=== PATIENT | male | born 1995 | race African-American/Black ===

== ENCOUNTER 2016-06-18 20:17 | Emergency (ER) | payer MEDICAID ==
[~2016-06-18] VITALS: Ht 180.3 cm; Wt 97.5 kg
[~2016-06-18 20:17] MED LIST: BECL80AE9; DIVA500T4 PO; [UNRECOGNIZED DRUG - OTHER]
[2016-06-19] MEDS ORDERED: CLINDAMYCIN 900MG IV 50 ML IV ONE
[2016-06-19] MEDS ORDERED: cefTRIAXone 1GM/50ML D5W 50 ML IV ONE
[2016-06-19 00:02] VITALS: BP 124/77
[2016-06-19] MEDS ORDERED: HYDROcodone-ACET 10/325MG TAB PO ONE (00:45)
== END 2016-06-19 02:15 | disposition home or self-care (01) ==
LOC: ER 20:21
DX: L02.01 Cutaneous abscess of face (principal)
CPT/HCPCS: 96365; 96366; 96368; 99284; J0696; J3490

== ENCOUNTER 2016-11-02 09:41 | Emergency (ER) | payer MEDICAID ==
[~2016-11-02] VITALS: Ht 177.8 cm; Wt 90.7 kg
[2016-11-02 09:46] VITALS: BP 142/79
== END 2016-11-02 11:44 | disposition home or self-care (01) ==
LOC: ER 09:41
DX: J02.9 Acute pharyngitis, unspecified (principal)

== ENCOUNTER 2019-05-22 09:00 | Emergency (ER) | payer SELFPAY ==
[~2019-05-22] VITALS: Ht 177.8 cm; Wt 90.7 kg
[2019-05-22 09:13] VITALS: BP 126/81
[2019-05-22] MEDS ORDERED: KETOROLAC TROMETH 60MG/2ML VIAL IM ONE (11:00)
[2019-05-22] MEDS ORDERED: cefTRIAXone SOD 1,000 MG VL IM ONE (11:00)
== END 2019-05-22 11:23 | disposition home or self-care (01) ==
LOC: ER 09:06
DX: S80.812A Abrasion, left lower leg, initial encounter (principal); L08.9 Local infection of the skin and subcutaneous tissue, unspecified; L03.116 Cellulitis of left lower limb; W22.8XXA Striking against or struck by other objects, initial encounter; Y93.89 Activity, other specified; Y99.8 Other external cause status; Y92.89 Other specified places as the place of occurrence of the external cause
CPT/HCPCS: 73562; 93971; 96372; 99284; J0696; J1885